=== PATIENT | male | born 1980 | race Caucasian/White ===

== ENCOUNTER 2019-10-22 03:05 | Emergency (ER) | payer BC ==
--- NOTE | 2019-10-22 04:05 | ER ---
Nurse's Notes [facility] Name: Vinnie Barraza Age: 38 yrs Sex: Male : 1980 Arrival Date: 10/22/2019 Time: 03:08 Bed 5 Private MD: Bam Burdick Diagnosis: Acute frontal sinusitis, unspecified;Acute maxillary sinusitis, unspecified Presentation: 10/22 03:20 Presenting complaint: Patient states: yesterday it all started i feel light headed, rr5 having trouble breathing, congestion, nasal drip, fever T 101 F and cough. now it feels like it getting worst. 03:20 Transition of care: patient was not received from another setting of care. Onset of rr5 symptoms was October 21, 2019. Risk Assessment: Do you want to hurt yourself or someone else? Patient reports no desire to harm self or others. Initial Sepsis Screen: Does the patient meet any 2 criteria? No. Patient's initial sepsis screen is negative. Does the patient have a suspected source of infection? Yes: Productive cough/pneumonia. Care prior to arrival: None. 03:20 Method Of Arrival: Ambulatory rr5 03:20 Acuity: AGNES 3 rr5 Historical: - Allergies: 03:25 No Known Allergies; rr5 - Home Meds: 03:25 Delma-D 12 Hour 60-120 mg Oral Tb12 1 tab 2 times per day [Active]; Claritin Oral rr5 [Active]; - PMHx: 03:25 allergies; rr5 - PSHx: 03:25 None; rr5 - Immunization history:: Adult Immunizations up to date, Flu vaccine is up to date. - Coronavirus screen:: The patient has NOT traveled to [place] in the past 14 days. Proceed with normal triage process as indicated. - Social history:: Smoking status: . - Ebola Screening: : Patient negative for fever greater than or equal to 101.5 degrees Fahrenheit, and additional compatible Ebola Virus Disease symptoms Patient denies exposure to infectious person Patient denies travel to an Ebola-affected area in the 21 days before illness onset. Screenin:20 Abuse screen: Denies threats or abuse. Denies injuries from another. Nutritional rr5 screening: No deficits noted. Tuberculosis screening: No symptoms or risk factors identified. Fall Risk None identified. Total Gilman Fall Scale indicates No Risk (0-24 pts). Assessment: 03:20 General: Appears in no apparent distress. uncomfortable, Behavior is calm, cooperative, rr5 appropriate for age. 03:20 Pain: Complains of pain in face Pain does not radiate. Pain currently is 6 out of 10 on rr5 a pain scale. Quality of pain is described as aching, Pain began 1 day ago. Is intermittent. Neuro: Level of Consciousness is awake, alert, obeys commands, Oriented to person, place, time, situation, Appropriate for age Reports light headed. Cardiovascular: Reports lightheadedness, Capillary refill < 3 seconds Patient's skin is warm and dry. Respiratory: Reports shortness of breath since yesterday cough that is productive, nasal drip Airway is patent Respiratory effort is even, unlabored, Respiratory pattern is regular, symmetrical. GI: No signs and/or symptoms were reported involving the gastrointestinal system. : No signs and/or symptoms were reported regarding the genitourinary system. EENT: Reports nasal discharge that is yellow. Derm: Skin is intact, is healthy with good turgor, Skin temperature is warm. Musculoskeletal: Circulation, motion, and sensation intact. Capillary refill < 3 seconds. 03:55 Reassessment: Patient appears in no apparent distress at this time. ED provider at rr5 bedside explaining the plan and result of the test. 04:12 Reassessment: Patient appears in no apparent distress at this time. Patient is alert, rr5 oriented x 3, equal unlabored respirations, skin warm/dry/pink. discharge instruction given and explained without complaints made. Vital Signs: 03:20 BP 127 / 82; Pulse 117; Resp 20; Temp 98.5; Pulse Ox 97% ; Weight 164.65 kg; Height 5 rr5 ft. 10 in. (177.80 cm); Pain 6/10; 04:10 BP 131 / 75; Pulse 105; Resp 19; Temp 98.4; Pulse Ox 99% on R/A; rr5 03:20 Body Mass Index 52.08 (164.65 kg, 177.80 cm) rr5 ED Course: 03:08 Patient arrived in ED. es 03:09 Bam Burdick MD is Private Physician. es 03:14 Mc Norwood MD is Attending Physician. kdr 03:22 Hoffman, Luis Manuel, RN is Primary Nurse. rr5 03:24 Triage completed. rr5 03:26 Arm band placed on right wrist. rr5 03:51 Patient has correct armband on for positive identification. Placed in gown. Bed in low rr5 position. Pulse ox on. NIBP on. 03:51 No provider procedures requiring assistance completed. rr5 04:04 Bam Burdick MD is Referral Physician. kdr 04:13 Patient did not have IV access during this emergency room visit. rr5 Administered Medications: 04:10 Drug: LevaQUIN 750 mg Route: PO; rr5 04:14 Follow up: Response: Medication administered at discharge. rr5 Outcome: 04:04 Discharge ordered by . kdr 04:13 Discharged to home ambulatory. rr5 04:13 Condition: stable 04:13 Discharge instructions given to patient, Instructed on discharge instructions, follow up and referral plans. medication usage, Demonstrated understanding of instructions, follow-up care, medications, Prescriptions given X 1. 04:14 Patient left the ED. rr5 Signatures: Mc Norwood MD MD kdr Estefany Can Raymond, RN RN rr5
--- NOTE | 2019-10-22 04:06 | EDPHYS ---
Physician Documentation [facility] Name: Vinnie Barraza Age: 38 yrs Sex: Male : 1980 Arrival Date: 10/22/2019 Time: 03:08 Bed 5 Private MD: Bam Burdick ED Physician Mc Norwood HPI: 10/22 05:19 This 38 yrs old Male presents to ER via Ambulatory with complaints of Flu kdr Symptoms. 05:19 The patient or guardian reports cough, that is intermittent, described as mild, flu kdr symptoms, arthralgias, low-grade fever, myalgias, Sinus pressure, frontal and maxillary. Onset: The symptoms/episode began/occurred gradually, 3 day(s) ago. Severity of symptoms: At their worst the symptoms were mild, in the emergency department the symptoms are unchanged. Modifying factors: The symptoms are alleviated by nothing, the symptoms are aggravated by nothing. Associated signs and symptoms: Pertinent positives: fever, Sinus congestion. The patient has experienced similar episodes in the past, a few times, Feels like when he had the flu previously. The patient has not recently seen a physician. Historical: - Allergies: 03:25 No Known Allergies; rr5 - Home Meds: 03:25 Delma-D 12 Hour 60-120 mg Oral Tb12 1 tab 2 times per day [Active]; Claritin Oral rr5 [Active]; - PMHx: 03:25 allergies; rr5 - PSHx: 03:25 None; rr5 - Immunization history:: Adult Immunizations up to date, Flu vaccine is up to date. - Coronavirus screen:: The patient has NOT traveled to [place] in the past 14 days. Proceed with normal triage process as indicated. - Social history:: Smoking status: . - Ebola Screening: : Patient negative for fever greater than or equal to 101.5 degrees Fahrenheit, and additional compatible Ebola Virus Disease symptoms Patient denies exposure to infectious person Patient denies travel to an Ebola-affected area in the 21 days before illness onset. ROS: 05:19 Constitutional: Negative for fever, chills, and weight loss, Eyes: Negative for injury, kdr pain, redness, and discharge, Neck: Negative for injury, pain, and swelling, Cardiovascular: Negative for chest pain, palpitations, and edema, Abdomen/GI: Negative for abdominal pain, nausea, vomiting, diarrhea, and constipation, Back: Negative for injury and pain, : Negative for injury, bleeding, discharge, and swelling, MS/Extremity: Negative for injury and deformity, Skin: Negative for injury, rash, and discoloration, Neuro: Negative for headache, weakness, numbness, tingling, and seizure activity. Psych: Negative for depression, anxiety, suicide ideation, homicidal ideation, and hallucinations, Allergy/Immunology: Negative for hives, rash, and allergies, Endocrine: Negative for neck swelling, polydipsia, polyuria, polyphagia, and marked weight changes, Hematologic/Lymphatic: Negative for swollen nodes, abnormal bleeding, and unusual bruising. 05:19 ENT: Positive for sinus congestion, sinus pain, Negative for 05:19 Respiratory: Positive for cough, with yellow sputum. Exam: 05:19 Constitutional: This is a well developed, well nourished patient who is awake, alert, kdr and in no acute distress. Head/Face: Normocephalic, atraumatic. Eyes: Pupils equal round and reactive to light, extra-ocular motions intact. Lids and lashes normal. Conjunctiva and sclera are non-icteric and not injected. Cornea within normal limits. Periorbital areas with no swelling, redness, or edema. Neck: Trachea midline, no thyromegaly or masses palpated, and no cervical lymphadenopathy. Supple, full range of motion without nuchal rigidity, or vertebral point tenderness. No Meningismus. Chest/axilla: Normal chest wall appearance and motion. Nontender with no deformity. No lesions are appreciated. Cardiovascular: Regular rate and rhythm with a normal S1 and S2. No gallops, murmurs, or rubs. Normal PMI, no JVD. No pulse deficits. Respiratory: Lungs have equal breath sounds bilaterally, clear to auscultation and percussion. No rales, rhonchi or wheezes noted. No increased work of breathing, no retractions or nasal flaring. Abdomen/GI: Soft, non-tender, with normal bowel sounds. No distension or tympany. No guarding or rebound. No evidence of tenderness throughout. Back: No spinal tenderness. No costovertebral tenderness. Full range of motion. Skin: Warm, dry with normal turgor. Normal color with no rashes, no lesions, and no evidence of cellulitis. MS/ Extremity: Pulses equal, no cyanosis. Neurovascular intact. Full, normal range of motion. Neuro: Awake and alert, GCS 15, oriented to person, place, time, and situation. Cranial nerves II-XII grossly intact. Motor strength 5/5 in all extremities. Sensory grossly intact. Cerebellar exam normal. Normal gait. Psych: Awake, alert, with orientation to person, place and time. Behavior, mood, and affect are within normal limits. 05:19 Head/face: Sinus tenderness, that is moderate, is located over the right frontal sinus, left frontal sinus, right maxillary sinus and left maxillary sinus. Vital Signs: 03:20 BP 127 / 82; Pulse 117; Resp 20; Temp 98.5; Pulse Ox 97% ; Weight 164.65 kg; Height 5 rr5 ft. 10 in. (177.80 cm); Pain 6/10; 04:10 BP 131 / 75; Pulse 105; Resp 19; Temp 98.4; Pulse Ox 99% on R/A; rr5 03:20 Body Mass Index 52.08 (164.65 kg, 177.80 cm) rr5 MDM: 04:04 Patient medically screened. kdr 05:19 Data reviewed: vital signs, nurses notes, lab test result(s). Counseling: I had a kdr detailed discussion with the patient and/or guardian regarding: the historical points, exam findings, and any diagnostic results supporting the discharge/admit diagnosis, lab results, radiology results, the need for outpatient follow up. 10/22 03:14 Order name: Flu kdr 10/22 03:56 Order name: Influenza Screen (A ; Complete Time: 04:02 EDMS Administered Medications: 04:10 Drug: LevaQUIN 750 mg Route: PO; rr5 04:14 Follow up: Response: Medication administered at discharge. rr5 Disposition: 10/22/19 04:04 Discharged to Home. Impression: Acute frontal sinusitis, unspecified, Acute maxillary sinusitis, unspecified. - Condition is Stable. - Discharge Instructions: Sinusitis, Adult, Acute Bronchitis, [id number], Upper Respiratory Infection, Adult, [id number]. - Prescriptions for Levaquin 750 mg Oral Tablet - take 1 tablet by ORAL route once daily for 10 days; 10 tablet. - Medication Reconciliation Form, Thank You Letter, Antibiotic Education form. - Follow up: Bam Burdick MD; When: 2 - 3 days; Reason: If symptoms return, Further diagnostic work-up, Recheck today's complaints, Continuance of care, Re-evaluation by your physician. - Problem is new. - Symptoms have improved. Signatures: Dispatcher [employer] Mc Arnett MD MD kdr Luis Manuel Hoffman RN RN rr5 Corrections: (The following items were deleted from the chart) 04:14 04:04 10/22/2019 04:04 Discharged to Home. Impression: Acute frontal sinusitis, rr5 unspecified; Acute maxillary sinusitis, unspecified. Condition is Stable. Forms are Medication Reconciliation Form, Thank You Letter, Antibiotic Education, Prescription Opioid Use. Follow up: Bam Burdick; When: 2 - 3 days; Reason: If symptoms return, Further diagnostic work-up, Recheck today's complaints, Continuance of care, Re-evaluation by your physician. Problem is new. Symptoms have improved. kdr
[2019-10-22] MEDS ORDERED: levoFLOXacin 750 MG TAB ONE (04:14)
[2019-10-22 04:25] VITALS: BP 131/75; TEMP 98.4; O2SAT 99
== END 2019-10-22 04:14 | disposition home or self-care (01) ==
LOC: ER 03:05
DX: J01.10 Acute frontal sinusitis, unspecified (principal); J01.00 Acute maxillary sinusitis, unspecified
CPT/HCPCS: 87804; 99283

== ENCOUNTER 2019-11-08 21:33 | Emergency (ER) | payer BC ==
[2019-11-08 22:41] LABS: Absolute Lymphocytes (CBC) 1.5 K/uL (0.7-4.9); Hematocrit 40.4 % (39.6-49.0); Lymphocytes % 16.8 % (15.3-44.8); RBC Red Blood Cell Count 4.46 M/uL (4.33-5.43)
[2019-11-08 22:44] LABS: Protime INR 1.01
[2019-11-08 22:58] LABS: ALT/SGPT 43 U/L (12-78); AST/SGOT 22 U/L (15-37); Albumin 3.2 g/dL (3.4-5.0); Alkaline Phosphatase 42 U/L (45-117); BUN Blood Urea Nitrogen 18 mg/dL (7-18); Bicarbonate 26 mmol/L (21-32); Bilirubin Direct 0.2 mg/dL (0-0.2); Bilirubin Total 0.7 mg/dL (0.2-1.0); Glucose Level 122 mg/dL (74-106); Magnesium 1.9 mg/dL (1.8-2.4); NT PRO-BNP 10 pg/mL (<125); Potassium 3.5 mmol/L (3.5-5.1); Protein, Total 7.2 g/dL (6.4-8.2); Sodium Level 139 mmol/L (136-145); Troponin (Emerg Dept Use Only) < 0.02 ng/mL (0.0-0.045)
[2019-11-08] MEDS ORDERED: ALBUTEROL 2.5 MG/3 ML NEB SOL ONE (23:07)
[2019-11-08] MEDS ORDERED: IPRATROPIUM BROM 0.5MG/2.5ML ONE (23:07)
[2019-11-08] MEDS ORDERED: NA CHLORIDE 0.9% 1,000 ML ONE (23:08)
[2019-11-08] MEDS ORDERED: HYDROCODONE/CHLORPHEN 5 ML/OSYR ONE (23:08)
[2019-11-09] MEDS ORDERED: CEFTRIAXONE/SWI 1gm 2 GM/20 ML SYR ONE (01:09)
[2019-11-09] MEDS ORDERED: NA CHLORIDE 0.9% 1,000 ML ONE (01:18)
[2019-11-09] MEDS ORDERED: AZITHROMYCIN 250 MG TAB ONE (01:24)
--- NOTE | 2019-11-09 02:34 | ER ---
[facility]urse's Notes [facility] Name: Vinnie Barraza Age: 39 yrs Sex: Male : 1980 Arrival Date: 11/08/2019 Time: 21:36 Bed 15 Private MD: Diagnosis: Pneumonia due to other specified bacteria Presentation: 11/07 21:50 Chief complaint: Patient states: I'VE BEEN HAVING THIS COUGH FOR A 2 AND A HALF WEEKS ls4 NOW. MY SINUS INFECTION IS GONE BUT I STILL HAVE THIS COUGH. Coronavirus screen: The patient has NOT traveled to [place] in the past 14 days. Proceed with normal triage procedures. Ebola Screen: No symptoms or risks identified at this time. 21:50 Method Of Arrival: Ambulatory ls4 23:30 Initial Sepsis Screen: Does the patient meet any 2 criteria? No. Patient's initial jv1 sepsis screen is negative. Does the patient have a suspected source of infection? Yes: Other: nonproductive cough No. Patient's initial sepsis screen is negative. Risk Assessment: Do you want to hurt yourself or someone else? Patient reports no desire to harm self or others. 23:30 Acuity: AGNES 3 jv1 23:36 Onset of symptoms was October 22, 2019. jv1 Triage Assessment: 22:43 General: Appears in no apparent distress. uncomfortable, Behavior is calm, cooperative. ls4 Pain: Complains of pain in right upper quadrant and left upper quadrant Pain currently is 6 out of 10 on a pain scale. Neuro: No deficits noted. Cardiovascular: No deficits noted. Respiratory: Reports cough that is non-productive, dry, pain with cough Pain is 6 out of 10 on a pain scale. Airway is patent Respiratory effort is even, unlabored, Respiratory pattern is regular, Breath sounds are clear bilaterally. Onset: The symptoms/episode began/occurred gradually, the patient has mild shortness of breath. Historical: - Allergies: 22:38 No Known Allergies; ls4 - Home Meds: 22:38 Delma-D 12 Hour 60-120 mg Oral Tb12 1 tab 2 times per day [Active]; Claritin Oral ls4 [Active]; FLONASE [Active]; - PMHx: 22:39 allergies; CHRON'S DISEASE; ls4 - Immunization history:: Adult Immunizations up to date, Flu vaccine is up to date. - Social history:: Smoking status: Patient denies any tobacco usage or history of. Screenin:47 Abuse screen: Denies threats or abuse. Denies injuries from another. Nutritional ls4 screening: On. Tuberculosis screening: No symptoms or risk factors identified. Fall Risk None identified. Assessment: 23:24 General: Appears in no apparent distress. comfortable, obese, well groomed, Behavior is jv1 calm, cooperative, appropriate for age. Pain: Denies pain. Neuro: Level of Consciousness is awake, alert, obeys commands, Oriented to person, place, time, situation, Inside Meter Tester are equal bilaterally. Cardiovascular: Denies chest pain, Capillary refill < 3 seconds Rhythm is sinus tachycardia. Respiratory: Reports cough that is non-productive, Airway is patent Respiratory effort is even, unlabored, Respiratory pattern is regular, symmetrical, Breath sounds are diminished bilaterally. GI: Abdomen is round non-distended, Bowel sounds present X 4 quads. Abd is soft and non tender X 4 quads. : No signs and/or symptoms were reported regarding the genitourinary system. EENT: No signs and/or symptoms were reported regarding the EENT system. Derm: Skin is intact, is healthy with good turgor. Musculoskeletal: No signs and/or symptoms reported regarding the musculoskeletal system. 23:45 Reassessment: pt taken to CT. jv1 11/08 00:34 Reassessment: Patient appears in no apparent distress at this time. No changes from jv1 previously documented assessment. Patient and/or family updated on plan of care and expected duration. Pain level reassessed. Patient is alert, oriented x 3, equal unlabored respirations, skin warm/dry/pink. Patient states feeling better. Patient states symptoms have improved. 01:09 Reassessment: provider in the room with pt. jv1 01:30 Reassessment: Patient appears in no apparent distress at this time. No changes from jv1 previously documented assessment. Patient and/or family updated on plan of care and expected duration. Pain level reassessed. Patient is alert, oriented x 3, equal unlabored respirations, skin warm/dry/pink. Patient states feeling better. Patient states symptoms have improved. 02:30 Reassessment: Patient appears in no apparent distress at this time. No changes from jv1 previously documented assessment. Patient and/or family updated on plan of care and expected duration. Pain level reassessed. Patient is alert, oriented x 3, equal unlabored respirations, skin warm/dry/pink. Patient states feeling better. Patient states symptoms have improved. Vital Signs: 11/07 21:50 BP 133 / 84; Pulse 115; Resp 14; Temp 99.2(O); Pulse Ox 99% on R/A; Weight 164.65 kg; ls4 Height 5 ft. 11 in. (180.34 cm); Pain 6/10; 23:29 BP 125 / 80; Pulse 118; Resp 18; Temp 98.8; Pulse Ox 98% ; Pain 0/10; jv1 11/08 00:30 BP 126 / 80; Pulse 119; Resp 18; Temp 98.0; Pulse Ox 95% ; Pain 0/10; jv1 01:07 BP 128 / 86; Pulse 115; Resp 18; Temp 98.8; Pulse Ox 94% ; Pain 0/10; jv1 02:00 BP 125 / 88; Pulse 118; Resp 18; Temp 98.2; Pulse Ox 95% ; Pain 0/10; jv1 02:50 BP 124 / 85; Pulse 110; Resp 18; Temp 98.5; Pulse Ox 95% ; Pain 0/10; jv1 11/07 21:50 Body Mass Index 50.63 (164.65 kg, 180.34 cm) ls4 ED Course: 11/07 21:36 Patient arrived in ED. jg7 21:50 Arm band placed on. ls4 21:50 Patient has correct armband on for positive identification. Bed in low position. Call ls4 light in reach. Side rails up X 1. Report given to YANELIS MELCHOR. 21:50 Pulse ox on. NIBP on. Verbal reassurance given. ls4 21:52 Andi Gayle PA is PHCP. cp 21:52 Landon Padilla MD is Attending Physician. cp 21:57 Tory Vazquez, JILL is Primary Nurse. ls4 22:48 Strep Sent. ds4 22:48 Flu Sent. ds4 22:48 EKG done, by ED staff, reviewed by Landon Padilla MD. ds4 23:33 Triage completed. jv1 11/08 00:20 CT Chest For PE Angio In Process Unspecified. EDMS 02:51 No provider procedures requiring assistance completed. IV discontinued, intact, jv1 bleeding controlled, No redness/swelling at site. Pressure dressing applied. Administered Medications: 11/07 23:08 Drug: Albuterol - atroVENT (3:1) (2.5 mg - 0.5 mg) 3 ml Route: Nebulizer; jv1 11/08 02:41 Follow up: Response: No adverse reaction; Marked relief of symptoms jv1 11/07 23:08 Drug: Tussionex Pennkinetic ER 5 ml Route: PO; jv1 11/08 00:00 Follow up: Response: No adverse reaction; Marked relief of symptoms jv1 11/07 23:08 Drug: NS 0.9% 1000 ml Route: IV; Rate: 1 bolus; Site: right wrist; jv1 11/08 00:30 Follow up: Response: No adverse reaction; IV Status: Completed infusion jv1 01:00 Drug: Rocephin 2 grams Route: IV; Rate: calculated rate; Site: right forearm; rr5 01:10 Follow up: Response: No adverse reaction; IV Status: Completed infusion jv1 01:18 Drug: NS 0.9% 1000 ml Route: IV; Rate: 1 bolus; Site: right forearm; rr5 02:20 Follow up: Response: No adverse reaction; IV Status: Completed infusion jv1 01:24 Drug: Zithromax 500 mg Route: PO; rr5 02:39 Follow up: Response: No adverse reaction jv1 Outcome: 02:33 Discharge ordered by . cp 02:52 Discharged to home ambulatory. jv1 02:52 Condition: improved 02:52 Discharge instructions given to patient, Instructed on discharge instructions, follow up and referral plans. medication usage, Demonstrated understanding of instructions, follow-up care, medications, Prescriptions given X 4. 02:56 Patient left the ED. jv1 Signatures: Dispatcher [employer] EDMS Ousmane Crowe ds4 Andi Gayle PA PA cp Yanelis Vega RN RN jv1 Tory Vazquez RN RN ls4 Luis Manuel Hoffman RN RN rr5 Karen Mcginnisg7
--- NOTE | 2019-11-09 02:34 | EDPHYS ---
Physician Documentation [facility] Name: Vinnie Barraza Age: 39 yrs Sex: Male : 1980 Arrival Date: 11/08/2019 Time: 21:36 Bed 15 Private MD: ED Physician Landon Padilla HPI: 11/07 22:10 This 39 yrs old Male presents to ER via Ambulatory with complaints of Cough, cp Breathing Difficulty, Fever. 22:10 The patient or guardian reports cough, that is constant, with productive sputum, that cp is white. Onset: The symptoms/episode began/occurred 2.5 week(s) ago. Severity of symptoms: in the emergency department the symptoms are unchanged, despite home interventions. Historical: - Allergies: 22:38 No Known Allergies; ls4 - Home Meds: 22:38 Delma-D 12 Hour 60-120 mg Oral Tb12 1 tab 2 times per day [Active]; Claritin Oral ls4 [Active]; FLONASE [Active]; - PMHx: 22:39 allergies; CHRON'S DISEASE; ls4 - Immunization history:: Adult Immunizations up to date, Flu vaccine is up to date. - Social history:: Smoking status: Patient denies any tobacco usage or history of. ROS: 22:15 Constitutional: Negative for body aches, chills, fever, poor PO intake. cp 22:15 Eyes: Negative for injury, pain, redness, and discharge. cp 22:15 Eyes: Negative for discharge, pain, redness. 22:15 ENT: Negative for drainage from ear(s), ear pain, sore throat, difficulty swallowing, difficulty handling secretions. 22:15 Cardiovascular: Positive for chest pain, with cough, Negative for edema, palpitations. 22:15 Respiratory: Positive for cough, with white sputum, shortness of breath, Negative for wheezing. 22:15 Abdomen/GI: Positive for abdominal pain, of the upper abdomen, Negative for vomiting, diarrhea, constipation, anorexia. 22:15 Back: Negative for pain at rest, pain with movement. 22:15 : Negative for urinary symptoms. 22:15 Skin: Negative for rash. 22:15 Neuro: Negative for altered mental status, headache, syncope, weakness. 22:15 All other systems are negative. Exam: 22:30 Constitutional: The patient appears in no acute distress, alert, awake, cp non-diaphoretic, non-toxic, well developed, well nourished, obese. 22:30 Head/Face: Normocephalic, atraumatic. Eyes: Pupils equal round and reactive to light, cp extra-ocular motions intact. Lids and lashes normal. Conjunctiva and sclera are non-icteric and not injected. Cornea within normal limits. Periorbital areas with no swelling, redness, or edema. ENT: Nares patent. No nasal discharge, no septal abnormalities noted. Tympanic membranes are normal and external auditory canals are clear. Oropharynx with no redness, swelling, or masses, exudates, or evidence of obstruction, uvula midline. Mucous membranes moist. 22:30 Chest/axilla: Normal chest wall appearance and motion. Nontender with no deformity. No lesions are appreciated. 22:30 Neck: ROM/movement: is normal, is supple, without pain, no range of motions limitations, no meningismus. 22:30 Cardiovascular: Rate: tachycardic, Rhythm: regular, Heart sounds: murmur, not appreciated, Edema: is not appreciated, JVD: is not appreciated. 22:30 Respiratory: the patient does not display signs of respiratory distress, Respirations: labored breathing, is not present, intercostal retractions, are absent, tachypnea, is not appreciated, Breath sounds: bronchial sounds, that are mild, are heard diffusely, decreased breath sounds, are not appreciated, stridor, is not appreciated, + upper airway congestion. wheezing: is not appreciated. 22:30 Abdomen/GI: Inspection: obese Bowel sounds: active, all quadrants, Palpation: abdomen is soft and non-tender, in all quadrants. 22:30 Back: pain, is absent, ROM is normal. 22:30 Skin: no rash present. 22:30 Neuro: Orientation: to person, place \T\ time. Mentation: is normal, Motor: moves all fours, strength is normal. 22:45 ECG was reviewed by the Attending Physician. cp 23:33 Musculoskeletal/extremity: DVT Exam: No signs of deep vein thrombosis. cp Vital Signs: 21:50 BP 133 / 84; Pulse 115; Resp 14; Temp 99.2(O); Pulse Ox 99% on R/A; Weight 164.65 kg; ls4 Height 5 ft. 11 in. (180.34 cm); Pain 6/10; 23:29 BP 125 / 80; Pulse 118; Resp 18; Temp 98.8; Pulse Ox 98% ; Pain 0/10; jv1 11/08 00:30 BP 126 / 80; Pulse 119; Resp 18; Temp 98.0; Pulse Ox 95% ; Pain 0/10; jv1 01:07 BP 128 / 86; Pulse 115; Resp 18; Temp 98.8; Pulse Ox 94% ; Pain 0/10; jv1 02:00 BP 125 / 88; Pulse 118; Resp 18; Temp 98.2; Pulse Ox 95% ; Pain 0/10; jv1 02:50 BP 124 / 85; Pulse 110; Resp 18; Temp 98.5; Pulse Ox 95% ; Pain 0/10; jv1 11/07 21:50 Body Mass Index 50.63 (164.65 kg, 180.34 cm) ls4 MDM: 11/07 21:56 Patient medically screened. cp 22:30 Differential Diagnosis: Bronchitis Influenza Viral Syndrome Pneumonia Other pulmonary cp embolism. 11/08 02:32 Data reviewed: vital signs, nurses notes, lab test result(s), EKG, radiologic studies, cp CT scan. 02:32 Test interpretation: by ED physician or midlevel provider: ECG. Counseling: I had a cp detailed discussion with the patient and/or guardian regarding: the historical points, exam findings, and any diagnostic results supporting the discharge/admit diagnosis, lab results, radiology results, the need for outpatient follow up, a family practitioner, to return to the emergency department if symptoms worsen or persist or if there are any questions or concerns that arise at home. Response to treatment: the patient's symptoms have markedly improved after treatment, and as a result, I will discharge patient. 11/07 21:59 Order name: Flu; Complete Time: 00:22 ls4 11/08 00:23 Interpretation: Reviewed. cp 11/07 22:06 Order name: Basic Metabolic Panel; Complete Time: 00:22 cp 11/08 00:22 Interpretation: Normal except: GLUC 122; GFR 78. cp 11/07 22:06 Order name: CBC with Diff; Complete Time: 00:22 cp 11/08 00:23 Interpretation: Reviewed. cp 11/07 22:06 Order name: LFT's; Complete Time: 00:22 cp 11/08 00:22 Interpretation: Normal except: ALK 42; ALB 3.2; GLOB 4.0; A/G 0.8. cp 11/07 22:06 Order name: Magnesium; Complete Time: 00:22 cp 11/07 22:06 Order name: NT PRO-BNP; Complete Time: 00:22 cp 11/07 22:06 Order name: PT-INR; Complete Time: 00:22 cp 11/07 22:06 Order name: Troponin (emerg Dept Use Only); Complete Time: 00:22 cp 03/ 00:23 Interpretation: Within normal limits: TROPED < 0.02. cp 11/07 22:06 Order name: D-Dimer; Complete Time: 00:22 cp 03/ 00:22 Interpretation: Abnormal: D-DIMER 1066. cp 11/07 22:06 Order name: Strep; Complete Time: 00:22 cp / 00:23 Interpretation: Reviewed. cp 11/07 22:50 Order name: CT Chest For PE Angio cp 11/07 23:06 Order name: Throat Culture EDAK 11/07 22:06 Order name: EKG; Complete Time: 22:07 cp 11/07 22:06 Order name: Cardiac monitoring; Complete Time: 22:47 cp 11/07 22:06 Order name: EKG - Nurse/Tech; Complete Time: 22:47 cp 11/07 22:06 Order name: IV Saline Lock; Complete Time: 22:47 cp 11/07 22:06 Order name: Labs collected and sent; Complete Time: 22:48 cp 11/07 22:06 Order name: O2 Per Protocol; Complete Time: 22:48 cp 11/07 22:06 Order name: O2 Sat Monitoring; Complete Time: 22:48 cp EC/03 22:45 Rate is 112 beats/min. Rhythm is regular. [place] interval is normal. QRS interval is cp normal. QT interval is normal. T waves are Flattened in lead III. Interpreted by me. Reviewed by me. Administered Medications: 23:08 Drug: Albuterol - atroVENT (3:1) (2.5 mg - 0.5 mg) 3 ml Route: Nebulizer; v1 11/08 02:41 Follow up: Response: No adverse reaction; Marked relief of symptoms [facility] 11/07 23:08 Drug: Tussionex Pennkinetic ER 5 ml Route: PO; jv1 11/08 00:00 Follow up: Response: No adverse reaction; Marked relief of symptoms jv1 11/07 23:08 Drug: NS 0.9% 1000 ml Route: IV; Rate: 1 bolus; Site: right wrist; jv1 11/08 00:30 Follow up: Response: No adverse reaction; IV Status: Completed infusion jv1 01:00 Drug: Rocephin 2 grams Route: IV; Rate: calculated rate; Site: right forearm; rr5 01:10 Follow up: Response: No adverse reaction; IV Status: Completed infusion jv1 01:18 Drug: NS 0.9% 1000 ml Route: IV; Rate: 1 bolus; Site: right forearm; rr5 02:20 Follow up: Response: No adverse reaction; IV Status: Completed infusion jv1 01:24 Drug: Zithromax 500 mg Route: PO; rr5 02:39 Follow up: Response: No adverse reaction jv1 Disposition: 03:11 Co-signature as Attending Physician, Landon Padilla MD. rn Disposition: 11/09/19 02:33 Discharged to Home. Impression: Pneumonia due to other specified bacteria. - Condition is Stable. - Discharge Instructions: Community-Acquired Pneumonia, Adult. - Prescriptions for Augmentin 875- 125 mg Oral Tablet - take 1 tablet by ORAL route every 12 hours for 10 days; 20 tablet. Tessalon Perles 100 mg Oral Capsule - take 2 capsule by ORAL route every 8 hours As needed; 30 capsule. Zithromax Z- Rohan 250 mg Oral Tablet - take 1 tablet by ORAL route as directed for 5 days Day 1 - take two (2) tablets one time. Day 2, 3, 4 , 5 take one (1) tablet once daily.; 6 tablet. Albuterol Sulfate 90 mcg/actuation - inhale 1-2 puff by INHALATION route every 4-6 hours; 1 Inhaler. - Medication Reconciliation Form, Thank You Letter, Antibiotic Education, Prescription Opioid Use form. - Follow up: Private Physician; When: 1 - 2 days; Reason: Recheck today's complaints. - Problem is new. - Symptoms have improved. Signatures: Dispatcher [employer] EDLandon Torrez MD MD rn Andi Gayle PA PA cp Vicente, Joyce, RN RN jv1 Tory Vazquez RN RN ls4 Luis Manule Hoffman, RN RN rr5 Corrections: (The following items were deleted from the chart) 11/07 23:02 22:51 Chest Single View+[email or web address] ordered. EDMS EDMS 11/08 02:56 02:33 11/09/2019 02:33 Discharged to Home. Impression: Pneumonia due to other specified jv1 bacteria. Condition is Stable. Forms are Medication Reconciliation Form, Thank You Letter, Antibiotic Education, Prescription Opioid Use. Follow up: Private Physician; When: 1 - 2 days; Reason: Recheck today's complaints. Problem is new. Symptoms have improved. cp
[2019-11-09 03:09] VITALS: O2SAT 95
[2019-11-09 03:11] VITALS: BP 124/85; TEMP 98.5
--- NOTE | 2019-11-09 08:24 | EKG ---
Test Date: 2019-11-08 Test Time: 22:37:51 Event Sales Manager: LENA MEASUREMENT RESULTS: Intervals: Rate: 112 IN: 160 QRSD: 92 QT: 318 QTc: 434 [place]: P: 1 IN: 160 QRS: -65 T: 25 INTERPRETIVE STATEMENTS: Sinus tachycardia Pulmonary disease pattern Left anterior fascicular block Abnormal ECG No previous ECG available for comparison Electronically Signed On 11-09-19 08:23:42 LEGAL COUNSEL by Vinnie Becker
--- NOTE | 2019-11-09 10:54 | RAD REPORT ---
EXAM DESCRIPTION: Chest For Pe Angio CLINICAL HISTORY: 39 years Male Cough;SOB COMPARISON: None. TECHNIQUE: Contiguous axial images obtained through the chest during the infusion of IV contrast. Re formatted images obtained. MIP reformatted images obtained. This exam was performed according to our department optimization program which includes automated exp osure control, adjustment of the mA and/or kv according to patient size and/or use of iterative recon struction technique. FINDINGS: Fatty replacement in the liver. The gallbladder is distended with multiple stones. No pericardial effusion. Small amount of soft tissue in the anterior mediastinum consistent with residual thymic tissue. There are enlarged right hilar lymph nodes. No aneurysmal dilatation of the thoracic aorta. The study is suboptimal for pulmonary embolism evaluation secondary to patient body habitus and motio n artifact. No definite pulmonary embolus is identified. Repeat study could be obtained if there is h igh clinical concern. There is patchy infiltrate in the right upper lobe with more consolidating infiltrate anteriorly. The findings suggest pneumonia. No pleural effusions. No pneumothorax. IMPRESSION: The study is suboptimal for pulmonary embolism evaluation secondary to patient body habi tus and motion artifact. No definite pulmonary embolus is identified. Repeat study could be obtained if there is high clinical concern for small pulmonary emboli. There is infiltrate in the right upper lobe consistent with pneumonia. There are prominent right south r lymph nodes which are most likely reactive. Electronically signed by: Ryley Price MD 11/09/2019 12:40 AM NET SOFTWARE ARCHITECT Due to temporary technical issues with the PACS/Fluency reporting system, reports are being signed by the in house radiologist as a courtesy to ensure prompt reporting. The interpreting radiologist is f ully responsible for the content of the report.
== END 2019-11-09 02:56 | disposition home or self-care (01) ==
LOC: ER 21:33
DX: J15.8 Pneumonia due to other specified bacteria (principal); J30.2 Other seasonal allergic rhinitis
CPT/HCPCS: 96361; 93005; 87070; 85025; 80048; 36415; 83735; 85610; 85379; 80076; 87081; 84484; 83880; 87804 ×2; 71275; 94640; 96374; 99285; Q9967; J0696; J7030 ×2